=== PATIENT | female | born 1965 ===

== ENCOUNTER 2017-02-12 10:59 | Emergency (ER) | payer OTHER, BC ==
[2017-02-12 11:09] VITALS: O2SAT 98
[2017-02-12] MEDS ORDERED: Tetanus/Diphtheria Toxoids 0.5 ml Syringe IM ONE ×2 (12:11→12:17)
[2017-02-12] MEDS ORDERED: Lidocaine 1% w Epi 1:100,000 Inj INJ STA (12:11)
[2017-02-12] MEDS ORDERED: Bacitracin 500 Units/gm Oint Foilpak UD TOP STA (12:11)
[2017-02-12] MEDS ORDERED: Bacitracin 500 Units/gm Oint Foilpak UD ONE (12:15)
[2017-02-12] MEDS ORDERED: Lidocaine 2% w Epi 1:100,000 Inj IJ ONE (12:15)
--- NOTE | 2017-02-12 12:37 | C.PDOC ---
History Of Present Illness 51 y/o female presents to [facility] with complaints of laceration to her head. 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 Pt denies LOC, headache or any other complaints. No active bleeding. Time Seen by Provider: 02/12/17 11:51 Chief Complaint (Nursing): Abnormal Skin Integrity History Per: Patient History/Exam Limitations: no limitations Onset/Duration Of Symptoms: Hrs Current Symptoms Are (Timing): Still Present Severity: Mild Recent travel outside of the [place]: No Past Medical History Reviewed: Historical Data, Nursing Documentation, Vital Signs Vital Signs: Last Vital Signs Temp 98.4 F 02/12/17 11:06 Pulse 64 02/12/17 11:06 Resp 20 02/12/17 11:06 BP 119/78 02/12/17 11:06 Pulse Ox 98 02/12/17 12:37 Family History: States: Unknown Family Hx - Social History Hx Tobacco Use: No Hx Alcohol Use: No Hx Substance Use: No - Immunization History Hx Tetanus Toxoid Vaccination: Yes Hx Influenza Vaccination: No Hx Pneumococcal Vaccination: No Review Of Systems Skin: Positive for: Other (laceration to top of head) Neurological: Negative for: Headache Physical Exam - Physical Exam Appears: Non-toxic, No Acute Distress Skin: Warm, Dry Head: Normacephalic, Laceration (2 cm linear laceration to top of head, no gross contamination) Neurological/Psych: Oriented x3, Normal Speech, Normal Cognition, Normal Cranial Nerves ED Course And Treatment O2 Sat by Pulse Oximetry: 98 (room air) Pulse Ox Interpretation: Normal Progress Note: Irrigated wound, placed 4 libby and applied bacitracin. Tetanus immunization given. Instructed to follow up with PMD 4-5 days for wound check. Laceration - Laceration Repair No standard instances Wound Length (In cm): 2 Description Of Wound: Linear Wound Cleansed With: Sterile Saline Anesthesia: Lidocaine 1%, With Epi Wound Examination: Irrigated With Saline, No FB With Wound Exploration Wound Closure: Libby (4) Wound Complexity: Simple Disposition - Disposition Disposition: HOME/ ROUTINE Disposition Time: 12:35 Condition: STABLE Additional Instructions: Follow up with PMD/Clinic within 1-2 days. Return to ED if feel worse. Staple removal in 7-8 days.. 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 - Scribe Statement The provider has reviewed the documentation as recorded by the Scribe Jose Luis Barkley All medical record entries made by the Angelaibharish were at my direction and personally dictated by me. I have reviewed the chart and agree that the record accurately reflects my personal performance of the history, physical exam, medical decision making, and the department course for this patient. I have also personally directed, reviewed, and agree with the discharge instructions and disposition.
[2017-02-12 13:27] VITALS: BP 113/73; PULSE 54; RESP 18; TEMP 97.6
== END 2017-02-12 12:45 | disposition home or self-care (01) ==
LOC: C.ER 10:59
DX: S01.01XA Laceration without foreign body of scalp, initial encounter (principal); W22.8XXA Striking against or struck by other objects, initial encounter; Y93.H3 Activity, building and construction; Y92.219 Unspecified school as the place of occurrence of the external cause